=== PATIENT | male | born 1970 | race Caucasian/White ===

== ENCOUNTER 2022-06-16 12:12 | Outpatient (CLI) | payer OTHER ==
[~2022-06-16] VITALS: Ht 177.8 cm; Wt 92.1 kg
[2022-06-16] MEDS ORDERED: CETI10CA PO (12:49)
[2022-06-16] MEDS ORDERED: FLUT9.9S NS (12:49)
[2022-06-16] MEDS ORDERED: FEXO-14 PO (12:49)
[2022-06-17] MEDS ORDERED: HYDR-3817 PO (10:03)
[2022-06-17] MEDS ORDERED: AMOX1TAB12 PO (12:12)
== END 2022-06-16 12:57 | disposition home or self-care (01) ==
LOC: PREOP 12:12
PROVIDERS: ATTEND Surgery
DX: Z01.818 Encounter for other preprocedural examination (principal)

== ENCOUNTER → 2022-06-16 | Outpatient (CLI) | payer OTHER ==
[~2022-06-16] MED LIST: AMOX1TAB12 PO; CETI10CA PO; FEXO-14 PO; FLUT9.9S NS; HYDR-3817 PO
--- NOTE | 2022-06-16 09:12 | Diagnostic Imaging Report ---
PROCEDURE: US Gallbladder. TECHNIQUE: Multiple real-time grayscale images were obtained over the right upper quadrant in various projections. INDICATION: Right upper quadrant pain with nausea and vomiting. Liver is slightly enlarged at 18.4 cm. Portal vein is patent and shows normal direction of flow. The gallbladder does contain stones. There is wall thickening up to 4 mm as well as minimal pericholecystic fluid. No definite biliary ductal dilatation is seen. Pancreas was obscured. Aorta is nonaneurysmal. IVC is patent. Right kidney is without hydronephrosis or calculi. There is no ascites. IMPRESSION: 1. Cholelithiasis and gallbladder wall thickening, suspicious for acute cholecystitis. 2. Mild hepatomegaly. Dictated by: Dictated on workstation # [id number]
== END ==
LOC: RAD 08:00
PROVIDERS: ATTEND Surgery
DX: K80.20 Calculus of gallbladder without cholecystitis without obstruction (principal); K82.8 Other specified diseases of gallbladder; R16.0 Hepatomegaly, not elsewhere classified
CPT/HCPCS: 76705

== ENCOUNTER 2022-06-17 09:44 | Day surgery (SDC) | payer OTHER ==
[~2022-06-17] VITALS: Ht 177 cm; Wt 92.1 kg
[2022-06-17] VITALS (15 sets, daily range): BP systolic 123–157; BP diastolic 78–107
[~2022-06-17 09:44] MED LIST changes: -AMOX1TAB12 PO; -HYDR-3817 PO
[2022-06-17] MEDS ORDERED: proPOfol 200 MG/20 ML (DIPRIVAN) VIAL IV ONE (10:00)
[2022-06-17] MEDS ORDERED: LIDOCAINE PF 2% 5 ML (XYLOCAINE) VIAL ONE (10:00)
[2022-06-17] MEDS ORDERED: fentaNYL INJ 100 MCG/2 ML AMP ONE (10:01)
[2022-06-17] MEDS ORDERED: MIDAZOLAM 2 MG/2 ML (VERSED) VIAL ONE (10:01)
--- NOTE | 2022-06-17 10:01 | Progress Note-Pre Operative ---
Pre-Operative Progress Note Date of Available H&P: Jun 17, 2022 Date H&P Reviewed: Jun 17, 2022 Time H&P Reviewed: 10:00 History & Physical: No changes noted Pre-Operative Diagnosis: chronic calculous cholecystitis, screening o SIOMARA DE PAZ MD Jun 17, 2022 10:01
[2022-06-17] MEDS ORDERED: BUP/EPI 0.25% 1:200,000 (MARCAINE) 30 ML VIAL ONE (10:03)
[2022-06-17] MEDS ORDERED: HYDR-3817 PO (10:03)
--- NOTE | 2022-06-17 10:03 | Discharge Inst-Surgical ---
D/C Lap Instructions-KIDO New, Converted, or Re-Newed RX: RX on Chart Follow Up Appt in 2 weeks Activity as tolerated No driving for 24 hours No driving while on pain medications Incentive Spirometry use every 2 hours while awake High Fiber Diet 25g or more per day Avoid Alcohol, Caffeine, Spicy [place] and Acid foods. Drink 64 fluid oz or more of fluids per day. Symptoms to Report: Fever over 101 degree F, Nausea/Vomiting If any problems/questions: Contact your physician or go to Emergency Room SIOMARA DE PAZ MD Jun 17, 2022 10:03
[2022-06-17] MEDS ORDERED: ceFAZolin INJECTION 2,000 MG ONE (10:08)
[2022-06-17] MEDS ORDERED: NS (IVPB) 50 ML ONE (10:08)
[2022-06-17] MEDS: LACTATED RINGERS 1,000 ML IV PRN ×2 (10:11→11:00)
[2022-06-17] MEDS ORDERED: ceFAZolin INJECTION 2,000 MG in NS (IVPB) 50 ML IV ONE (10:15)
[2022-06-17] MEDS ORDERED: ACETAMINOPHEN 325 MG TABLET PO PRN (10:15)
[2022-06-17] MEDS ORDERED: ONDANSETRON 4 MG/2 ML (SDV) Z0FRAN IVP PRN ×2 (10:15→12:30)
[2022-06-17] MEDS ORDERED: oxyCODONE/APAP 5/325MG (PERCOCET 5) TABLET PO PRN (10:15)
[2022-06-17] MEDS ORDERED: morphine INJ 10 MG/ML 1ML (SYR OR VIAL) IVP PRN ×2 (10:15)
[2022-06-17] MEDS ORDERED: ONDANSETRON 4 MG/2 ML (SDV) Z0FRAN ONE (11:17)
[2022-06-17] MEDS ORDERED: ROCURONIUM 50 MG/5 ML (ZEMURON) VIAL IV ONE (11:17)
[2022-06-17] MEDS ORDERED: morphine INJ 10 MG/ML 1ML (SYR OR VIAL) ONE (11:17)
[2022-06-17] MEDS ORDERED: KETOROLAC 30 MG/ML VIAL ONE (11:18)
[2022-06-17] MEDS ORDERED: PIPERACILLIN SODIUM/TAZOBACTAM 4.5 GM in NS (IVPB) 100 ML IV ONE (12:00)
[2022-06-17] MEDS ORDERED: GLYCOPYRROLATE 0.2 MG/ML (ROBINUL) 2 ML VIAL ONE (12:08)
[2022-06-17] MEDS ORDERED: NEOSTIGMINE (BLOXIVERZ ) 1 MG/1ML 10 ML VIAL ONE (12:08)
--- NOTE | 2022-06-17 12:11 | Progress Note-Post Operative ---
Post-Operative Progess Note Surgeon (s)/Supervisor Hydrochloric Area (s) Surgeon Dr. Rush Gooden M.D. Supervisor Hydrochloric Area: Xavi Jerez Pre-Operative Diagnosis chronic calculous cholecystitis, screening colo Post-Operative Diagnosis Gangrenous acute calculous cholecystitis, Stage II chronic internal and external hemorrhoids Procedure & Operative Findings Date of Procedure 06/17/22 Procedure Performed/Findings Laparoscopic cholecystectomy and colonoscopy Anesthesia Type GET Estimated Blood Loss Estimated blood loss (mL): Minimal Specimens/Packing Specimens Removed 1) Gallbladder XAVI JEREZ BRUSH FABRICATION SUPERVISOR Jun 17, 2022 12:11
[2022-06-17] MEDS ORDERED: AMOX1TAB12 PO (12:12)
[2022-06-17] MEDS ORDERED: SUGAMMADEX 500 MG/5 ML VIAL (BRIDION) IV ONE (12:29)
--- NOTE | 2022-06-17 12:29 | Anesthesia-General Post-Op ---
General Patient Condition Mental Status/LOC: Same as Preop Cardiovascular: Satisfactory Nausea/Vomiting: Absent Respiratory: Satisfactory Pain: Controlled Complications: Absent Post Op Complications Complications None Follow Up Care/Instructions Patient Instructions None needed. Anesthesia/Patient Condition Patient Condition Patient is doing well, no complaints, stable vital signs, no apparent adverse anesthesia problems. No complications reported per nursing. FEDERICO WOOTEN CRNA Jun 17, 2022 12:29
[2022-06-17] MEDS ORDERED: morphine INJ 10 MG/ML 1ML (SYR OR VIAL) IVP ONE (12:30)
[2022-06-17] MEDS ORDERED: HYDROmorphone 2 MG/ML VIAL (DILAUDID) IV ONE (12:30)
[2022-06-17] MEDS ORDERED: LABETALOL HCL 20 MG/4 ML VIAL ONE (12:47)
--- NOTE | 2022-06-17 22:33 | OPERATIVE REPORT ---
DATE OF SERVICE: 06/17/2022 PREOPERATIVE DIAGNOSES: Acute calculous cholecystitis, screening colonoscopy. POSTOPERATIVE DIAGNOSES: Acute gangrenous calculous cholecystitis, mild chronic stage II, external and internal hemorrhoids. PROCEDURES: Laparoscopic cholecystectomy, colonoscopy. SURGEON: SIOMARA DE PAZ MD PILING CUTTER: Xavi Medel APRN ANESTHESIA: General endotracheal. ESTIMATED BLOOD LOSS: Minimal. FINDINGS: Multiple gallstones, gangrenous with active infection with purulence. DISPOSITION: The patient tolerated the procedure well. INDICATIONS: The patient is a 52-year-old male with a 2-week history of pain in the right upper abdominal quadrant. He reports that this was after eating a meal and was more localized to the right upper abdominal quadrant with radiation towards the back. He also felt nausea and one episode of vomiting. Upon further questioning, he reports that he has had symptoms for the past few years, encompassing what he thought was an acid indigestion after eating food. An ultrasound was performed, which showed gallbladder wall thickening as well as the gallstones consistent with acute calculous cholecystitis. This gentleman is also in need of a screening colonoscopy. He has not had a colonoscopy at this point in his life. He states that he is otherwise doing well. Does not report any major issues with diarrhea, no constipation as well as no red blood per rectum or any dark tarry stools. He also does not report any family history of colon cancer. DESCRIPTION OF PROCEDURE: The patient was brought to the operating room, laid supine on the table. After adequate IV pain and sedative medications and general endotracheal intubation, the abdomen was prepped and draped in standard surgical fashion. A 0.5% Marcaine with epinephrine was then used to anesthetize the overlying skin in the left upper abdominal quadrant and a transverse skin incision made using a 15 blade. An 0 silk suture was applied to the medial aspect of the incision for retraction and a Veress needle inserted with a low opening pressure of 0 mmHg. The abdomen was then insufflated to 15 mmHg pressure. Veress needle removed and a 5 mm trocar placed followed by a 5 mm 45-degree angle laparoscope visualized the peritoneal cavity. A 4-quadrant abdominal exploration was performed. The gallbladder was not visualized at this time and covered with omentum. Under direct visualization, we then proceeded to place a supraumbilical 10 mm port after the skin and peritoneal lining were anesthetized using 0.5% Marcaine with epinephrine and a transverse skin incision made using a 15 blade. In a similar manner, 2 right upper abdominal quadrant 5 mm ports were placed. We then proceeded with a gentle dissection of the omentum off of the gallbladder. The gallbladder was gangrenous with an approximately 50% of the gallbladder green in coloration. The patient was then placed in reverse Trendelenburg position as well as plain right side up, left side down. The gallbladder was then decompressed using a laparoscopic needle as well as suction. The omental adhesions were then again taken down using blunt dissection as well as electrocautery. We then proceeded to open the hepatoduodenal ligament using a cautery on the hook instrument as well as the [place] dissector. The entire critical view of safety was identified including the triangle of Calot as well as the cystic duct and artery as the only two structures going into the gallbladder as well as the cystic plate behind the proximal gallbladder. A timeout was then taken and the cystic duct and artery. We then clipped proximally and distally and cut with EndoShears. The gallbladder was then dissected off of the liver bed using cautery. There were pockets of purulence between the gallbladder and the liver. The gallbladder was removed through the 10 mm port site using an EndoCatch bag. The subhepatic and subphrenic space were then copiously irrigated and suctioned out. Good hemostasis was observed and a 19-Portuguese Laci-Palm drain was placed in the subhepatic space and brought out the left upper abdominal quadrant port site and sutured to the skin using 3-0 nylon suture. The 10 mm port fascia and peritoneum were then closed under direct visualization using a Dimitri-Dora device and 0 Vicryl suture. The abdomen was desufflated and the remaining ports were removed. The supraumbilical incision was then closed loosely with skin jadyn and the two other sites closed using 4-0 Ethibond suture. The supraumbilical wound was then cleaned and covered with a gauze and the other two incisions covered with Dermabond. The patient was then placed in a frogleg position and a digital rectal examination was performed, which revealed chronic stage II external and internal hemorrhoids, not actively edematous or inflamed and no bleeding. Normal sphincter tone was felt and there were no palpable masses. Prostate gland was palpable and appeared normal. The endoscope was then intubated into the anus, rectum and gently insufflated. The endoscope was then advanced through the valve of Best of the rectum with no polyps or neoplasm was identified. Through the sigmoid colon, no diverticulosis was identified. We then proceeded through the remainder of the descending, transverse and ascending colon to the cecum, which were normal. There were no polyps or neoplasms identified throughout the colon or rectum. The endoscope was then slowly withdrawn while taking a second look and suctioning of residual air with no additional findings. The patient tolerated the procedure well. We will start IV normal pain medication as well as clear liquid diet. Once he was tolerating clears, has good pain control with oral pain medication and is ambulating well. We will discharge him home. We will also start him on Augmentin 875 mg b.i.d. as well as hydrocodone 7.5 q.4 hours p.r.n. for pain. We will monitor the Laci-Palm drain for any bilious drainage due to the severe inflammation of the gallbladder and swati hepatis. If any copious biliary drainage is encountered, he would need a referral to Gastroenterology for an outpatient ERCP as well as possible stent placement. We will also recommend a high fiber diet with at least 30 grams of fiber daily as well as significant amounts of water to promote soft stools on a daily basis. No polyps or any neoplasm was identified and if he is asymptomatic, he does not need another colonoscopy for another 10 years. Job ID: [id number] DocumentID: [id number] Dictated Date: 06/17/2022 12:21:19 Orthopedic Designer Date: 06/17/2022 22:31:00 Dictated By: SOIMARA DE PAZ MD [facility]
== END 2022-06-17 14:15 | disposition home or self-care (01) ==
LOC: SDC 09:44
PROVIDERS: ATTEND Surgery
DX: Z12.11 Encounter for screening for malignant neoplasm of colon (principal); K80.12 Calculus of gallbladder with acute and chronic cholecystitis without obstruction; K82.A1 Gangrene of gallbladder in cholecystitis; K82.8 Other specified diseases of gallbladder; K64.1 Second degree hemorrhoids; K64.4 Residual hemorrhoidal skin tags
CPT/HCPCS: 87081

== ENCOUNTER → 2022-08-23 | Outpatient (CLI) | payer OTHER ==
[~2022-08-23] MED LIST changes: +AMOX1TAB12 PO; +HYDR-3817 PO
--- NOTE | 2022-08-23 16:34 | Diagnostic Imaging Report ---
INDICATION: Choledocholithiasis. History of common bile duct stent placement. COMPARISON: None FINDINGS: Supine and upright views the abdomen demonstrate nonobstructive small bowel gas pattern. Mild amount of air and stool are seen scattered throughout the colon. No abnormal air-fluid levels or large collection of free intraperitoneal air is seen. No abnormal extraosseous calcifications or radiopaque foreign bodies are identified. Bony structures are age-appropriate. IMPRESSION: 1. Nonobstructive small bowel gas pattern. Dictated by: Dictated on workstation # [id number]
== END ==
LOC: RAD 14:32
PROVIDERS: ATTEND Surgery
DX: K80.50 Calculus of bile duct without cholangitis or cholecystitis without obstruction (principal); R14.0 Abdominal distension (gaseous); Z96.89 Presence of other specified functional implants
CPT/HCPCS: 74019

== ENCOUNTER → 2022-08-24 | Outpatient (CLI) | payer OTHER | END | disposition home or self-care (01) | LOC: PREOP 10:33 | PROVIDERS: ATTEND Surgery | DX: Z01.818 Encounter for other preprocedural examination (principal) ==

== ENCOUNTER 2023-01-10 10:49 | Outpatient (CLI) | payer OTHER | END 2023-01-10 13:20 | LOC: SLEEP 10:49 | PROVIDERS: ATTEND Otolaryngology Otolaryngology/Facial Plastic Surgery | DX: G47.33 Obstructive sleep apnea (adult) (pediatric) (principal) | CPT/HCPCS: G0399 ==